=== PATIENT | female | born 1950 | race Caucasian/White ===

== ENCOUNTER 2021-11-05 10:27 | Outpatient (REF) | payer MEDICARE, SELFPAY ==
--- NOTE | 2021-11-05 10:00 | PAPFT_PTH ---
PATIENT: Cat Villagomez LOC: [facility] U#:[id number] AGE/SX: 70/F ROOM: RE11/05/[address]: Jessica Rdz : 1950 BED: DIS: 11/05/2021 SPEC #: [id number] RECD: 11/05/21 12:49 STATUS: SHANIDragan REChepe #: [id number] ZA: 11/05/21 10:[address]: Jessica Rdz DEPT: [facility] Cytology RECD BY: Christianne Shelley ENTERED: 11/05/21 12:50 SP TYPE: PAPFT OTHR DR: Dior Moreno Tissues: 1 - CX/ENDOCX FOR PAP SMEARS Procedures: PAP THIN PREP/[facility] Screening HPV DNA PROBE Comments: [id number]
== END 2021-11-05 10:28 | disposition home or self-care (01) ==
LOC: LBN 10:27
PROVIDERS: PCP Family Medicine; Visit Provider Obstetrics & Gynecology Gynecology
DX: Z11.51 Encounter for screening for human papillomavirus (HPV); N89.8 Other specified noninflammatory disorders of vagina; Z01.419 Encounter for gynecological examination (general) (routine) without abnormal findings
CPT/HCPCS: 88142; 87624